=== PATIENT | male | born 2000 | race Caucasian/White ===

== ENCOUNTER 2022-12-28 10:57 | Emergency (ER) | payer OTHER ==
[2022-12-28] MEDS ORDERED: LEVALBUTEROL 1.25 MG/3 ML NEB ONE ×2 (11:46→12:28)
--- NOTE | 2022-12-28 12:27 | RAD REPORT ---
EXAM DESCRIPTION: RAD - Chest Single View - 12/28/2022 12:19 pm CLINICAL HISTORY: chest pain, sob Chest pain. COMPARISON: No comparisons FINDINGS: Portable technique limits examination quality. The lungs are grossly clear. The heart is normal in size. No displaced fractures. IMPRESSION: No acute intrathoracic process suspected.
--- NOTE | 2022-12-28 12:45 | EDPHYS ---
Physician Documentation [facility] Name: Jef Beavers Age: 22 yrs Sex: Male : 2000 Arrival Date: 12/28/2022 Time: 10:58 Bed 17 Private MD: OLGA Physician Damon Quinonez HPI: 12/28 11:02 This 22 yrs old Male presents to ER via Ambulatory with complaints of Chest Pain - when jmm breathing. 11:02 Is a 22-year-old male with no chronic medical conditions presents emerged part with [facility] complaints of substernal chest pain with deep inspiration beginning yesterday worsening today. Denies any fever, cough. Patient is a smoker. Denies abdominal pain.. Historical: - Allergies: 12:00 No Known Allergies; ph - Immunization history:: Adult Immunizations unknown. - Social history:: Smoking status: unknown. ROS: 11:02 Constitutional: Negative for fever, chills, and weight loss. jmm 11:02 Respiratory: Negative for shortness of breath, cough, wheezing, and pleuritic chest pain, Abdomen/GI: Negative for abdominal pain, nausea, vomiting, diarrhea, and constipation. 11:02 Cardiovascular: Positive for chest pain, with movement. 11:02 All other systems are negative. Exam: 11:02 Constitutional: This is a well developed, well nourished patient who is awake, alert, jmm and in no acute distress. Head/Face: atraumatic. Eyes: EOMI, no conjunctival erythema appreciated ENT: Moist Mucus Membranes Neck: Trachea midline, Supple Chest/axilla: Normal chest wall appearance and motion. 11:02 Abdomen/GI: Non distended Back: Normal ROM Skin: General appearance color normal MS/ Extremity: Moves all extremities, no obvious deformities appreciated, no edema noted to the lower extremities Neuro: Awake and alert Psych: Behavior is normal, Mood is normal, Patient is cooperative and pleasant 11:02 Cardiovascular: Rate: normal, Rhythm: regular, Pulses: no pulse deficits are appreciated. 11:02 Respiratory: the patient does not display signs of respiratory distress, Respirations: normal, Breath sounds: wheezing: that is mild, is scattered. Vital Signs: 11:59 BP 121 / 70; Pulse 65; Resp 18; Temp 98; Pulse Ox 98% ; ph MDM: 11:02 Patient medically screened. [facility] 12:42 Differential diagnosis: Costochondritis, pneumothorax, pneumonia, pulmonary embolism. [facility] Data reviewed: vital signs, nurses notes, radiologic studies, plain films. I considered the following discharge prescriptions or medication management in the emergency department Medications were administered in the Emergency Department. See MAR. Independent interpretation of the following test(s) in the Emergency Department X-Ray: My interpretation is No infiltrate appreciated. Test considered but Not performed: CT: PERC negative. Counseling: I had a detailed discussion with the patient and/or guardian regarding: the historical points, exam findings, and any diagnostic results supporting the discharge/admit diagnosis, radiology results, the need for outpatient follow up, to return to the emergency department if symptoms worsen or persist or if there are any questions or concerns that arise at home. 12/28 11:05 Order name: Chest Single View XRAY; Complete Time: 12:[address] [facility] 12/28 11:05 Order name: EKG - Nurse/Tech; Complete Time: 11:[address] [facility] EC: Rate is 60 beats/min. Rhythm is regular. QRS Floweree is Normal. MO interval is normal. QRS jmm interval is normal. QT interval is normal. No Q waves. T waves are Normal. No ST changes noted. Reviewed by me. Administered Medications: 11:59 Drug: Levalbuterol Inhalation 1.25 mg Route: Inhalation; ph Disposition Summary: 12/28/22 12:44 Discharge Ordered Location: Home [facility] Condition: Stable [facility] Diagnosis - Pleurisy [facility] Followup: [facility] - With: Private Physician - When: 2 - 3 days - Reason: Recheck today's complaints, Continuance of care, Re-evaluation by your physician Discharge Instructions: - Discharge Summary Sheet [facility] - Pleurisy [facility] Forms: - Medication Reconciliation Form [facility] - Thank You Letter [facility] - Antibiotic Education [facility] - Prescription Opioid Use [facility] - Work release form eb Prescriptions: - Medrol (Estuardo) 4 mg Oral Tablets, Dose Pack - take 1 tablet by ORAL route as directed - follow package instructions; [address] [facility] packet; Refills: 0, Product Selection Permitted - orphenadrine citrate 100 mg Oral Tablet Sustained Release - take 1 tablet by ORAL route 2 times per day As needed; 20 tablet; Refills: 0, [facility] Product Selection Permitted Signatures: Dispatcher [employer] EDYoseph Luu PA PA jmm Angelita Melendez, RN RN ph
--- NOTE | 2022-12-28 12:45 | ER ---
Nurse's Notes [facility] Name: Jef Beavers Age: 22 yrs Sex: Male : 2000 Arrival Date: 12/28/2022 Time: 10:58 Bed 17 Private MD: Diagnosis: Pleurisy Presentation: 12/28 11:59 Chief complaint: Patient states: Chest pain that is worse w/ breathing x 3 days, also ph reports mild cough and SOB. Coronavirus screen: Vaccine status: Patient reports being unvaccinated. Ebola Screen: No symptoms or risks identified at this time. Initial Sepsis Screen: Does the patient meet any 2 criteria? No. Patient's initial sepsis screen is negative. Does the patient have a suspected source of infection? No. Patient's initial sepsis screen is negative. Risk Assessment: Do you want to hurt yourself or someone else? Patient reports no desire to harm self or others. Onset of symptoms was December 28, 2022. 11:59 Method Of Arrival: Ambulatory ph 11:59 Acuity: SHAY 4 ph Historical: - Allergies: 12:00 No Known Allergies; ph - Immunization history:: Adult Immunizations unknown. - Social history:: Smoking status: unknown. Screenin:00 [facility] ED Fall Risk Assessment (Adult) History of falling in the last 3 months, ph including since admission No falls in past 3 months (0 pts) Confusion or Disorientation No (0 pts) Intoxicated or Sedated No (0 pts) Impaired Gait No (0 pts) Mobility Assist Device Used No (0 pt) Altered Elimination No (0 pt) Score/Fall Risk Level 0 - 2 = Low Risk Oriented to surroundings, Maintained a safe environment, Hourly rounding (assess needs \T\ fall precautionary measures) done. Abuse screen: Denies threats or abuse. Denies injuries from another. Nutritional screening: No deficits noted. Tuberculosis screening: No symptoms or risk factors identified. Assessment: 12:01 General: Appears in no apparent distress. comfortable, Behavior is calm, cooperative, ph appropriate for age. Pain: Complains of pain in diaphragm Pain began gradually, 2-3 days ago. Neuro: Level of Consciousness is awake, alert, obeys commands, Oriented to person, place, time, situation. Cardiovascular: Capillary refill < 3 seconds in bilateral fingers Patient's skin is warm and dry. Respiratory: Reports cough that is pain with cough pain with respiration Airway is patent Respiratory effort is even, unlabored, Respiratory pattern is regular, symmetrical. Derm: Skin is intact, Skin is pink, warm \T\ dry. Musculoskeletal: Circulation, motion, and sensation intact. Range of motion: intact in all extremities. Vital Signs: 11:59 BP 121 / 70; Pulse 65; Resp 18; Temp 98; Pulse Ox 98% ; ph ED Course: 10:58 Patient arrived in ED. am2 10:58 Yoseph Trejo PA is PHCP. [facility] 10:58 Damon Quinonez MD is Attending Physician. [facility] 12:00 Triage completed. ph 12:00 Arm band placed on. ph 12:01 Patient has correct armband on for positive identification. Pulse ox on. NIBP on. ph 12:02 No provider procedures requiring assistance completed. Patient did not have IV access ph during this emergency room visit. Patient maintains SpO2 saturation greater than 95% on room air. 12:21 Chest Single View XRAY In Process Unspecified. EDMS 13:23 Belkis Chadwick, RN is Primary Nurse. Administered Medications: 11:59 Drug: Levalbuterol Inhalation 1.25 mg Route: Inhalation; ph Medication: 12:00 VIS not applicable for this client. ph Outcome: 12:44 Discharge ordered by . [facility] 13:22 Discharged to 13:22 Condition: good 13:23 Patient left the ED. Signatures: Dispatcher [employer] EDMS Yoseph Trejo PA PA Belkis Serrato RN RN Angelita Melendez RN RN Donya Gonzalez am2 Corrections: (The following items were deleted from the chart) 12:02 12:01 Pain: ph ph
[2022-12-28 14:07] VITALS: BP 121/70; TEMP 98; O2SAT 98
== END 2022-12-28 13:23 | disposition home or self-care (01) ==
LOC: ER 10:57
DX: R09.1 Pleurisy (principal)
CPT/HCPCS: 71045; J7614 ×2